=== PATIENT | male | born 1980 | race Caucasian/White ===

== ENCOUNTER 2019-06-27 16:47 | Observation (INO) ==
[2019-06-27 17:34] LABS: Basophils # 0.1 K/mcL (0.0-0.2); Basophils % 0.7 %; Hematocrit 49.8 % (37.5-50.1); Hemoglobin 17.2 g/dL (12.9-16.9); Immature Granulocytes % 0.3 % (0-4); Lymphocytes # 1.6 K/mcL (0.6-4.6); Mean Corpuscular HGB Conc 34.5 g/dL (31.6-35.5); Mean Corpuscular Hemoglobin 30.6 pg (28.0-33.3); Mean Corpuscular Volume 88.6 fL (83.0-100.0); Mean Platelet Volume 10.4 fL (9.4-12.4); Monocytes # 0.8 K/mcL (0.0-1.3); Monocytes % 5.2 %; Neutrophils # 12.2 K/mcL (1.6-8.9); Platelet Count 207 K/mcL (140-400); Red Blood Count 5.62 M/mcL (4.19-5.50); Red Cell Distribution Width 11.9 % (11.5-14.5); Segmented Neutrophils % 82.8 %; White Blood Count 14.8 K/mcL (4.3-11.1)
[2019-06-27] MEDS ORDERED: methylPREDNISolone 125 MG/2 ML VIAL IVP ONE (17:34)
[2019-06-27 17:52] LABS: BUN/Creatinine Ratio 15 (6-26); Blood Urea Nitrogen 24 mg/dL (6-20); Calcium 10.1 mg/dL (8.6-10.3); Carbon Dioxide 27 mEq/L (23-29); Chloride 101 mEq/L (98-107); Glucose 95 mg/dL (70-105); Osmolality,Calculated 284 (280-300); Potassium 4.5 mEq/L (3.5-5.1); Sodium 135 mEq/L (136-145); eGFR For African Americans > 60 (> 60); eGFR For Non-African Americans 50 (> 60)
[2019-06-27] MEDS ORDERED: 0.9 % Sodium Chloride 1,000 ML IVC ONE (18:02)
[2019-06-27] MEDS ORDERED: Dexamethasone 10 MG/ML VIAL PO STA (19:05)
[2019-06-27] MEDS ORDERED: Naloxone 0.4 MG/ML INJ IVP PRN (22:05)
[2019-06-27] MEDS ORDERED: Albuterol 2.5 MG/3 ML NEBULIZER IH PRN (22:06)
[2019-06-28 04:55] LABS: Hematocrit 47.7 % (37.5-50.1); Hemoglobin 16.1 g/dL (12.9-16.9); Mean Corpuscular HGB Conc 33.8 g/dL (31.6-35.5); Mean Platelet Volume 10.4 fL (9.4-12.4); Platelet Count 209 K/mcL (140-400); Red Blood Count 5.36 M/mcL (4.19-5.50)
[2019-06-28 04:57] LABS: White Blood Count 7.2 K/mcL (4.3-11.1)
[2019-06-28 05:13] LABS: BUN/Creatinine Ratio 16 (6-26); Blood Urea Nitrogen 22 mg/dL (6-20); Calcium 9.8 mg/dL (8.6-10.3); Carbon Dioxide 26 mEq/L (23-29); Chloride 102 mEq/L (98-107); Glucose 200 mg/dL (70-105); Osmolality,Calculated 291 (280-300); Potassium 4.4 mEq/L (3.5-5.1); Sodium 136 mEq/L (136-145); eGFR For African Americans > 60 (> 60); eGFR For Non-African Americans 58 (> 60)
[2019-06-28 07:00] VITALS: BP 123/73
[2019-06-28] MEDS ORDERED: predniSONE 20 MG TABLET PO SCH (09:00)
[2019-06-28] MEDS ORDERED: FLU Vac QV 19-20 (6Month+)/PF 0.5 ML SYRINGE IM ONE (09:46)
== END 2019-06-28 10:41 | disposition home or self-care (01) ==
LOC: 3BNU 16:47 → EMEROOARM 16:47 → 3BNU 20:31
PROVIDERS: ADMIT Internal Medicine; ATTEND Internal Medicine

== ENCOUNTER 2019-07-02 20:41 | Observation (INO) ==
[2019-07-02] MEDS ORDERED: Albuterol 2.5 MG/3 ML NEBULIZER IH ONE (21:14)
[2019-07-02 21:27] LABS: Basophils # 0.1 K/mcL (0.0-0.2); Hematocrit 46.8 % (37.5-50.1); Immature Granulocytes % 0.3 % (0-4); Lymphocytes # 2.3 K/mcL (0.6-4.6); Lymphocytes % 19.9 %; Mean Corpuscular HGB Conc 34.2 g/dL (31.6-35.5); Mean Corpuscular Hemoglobin 30.2 pg (28.0-33.3); Mean Corpuscular Volume 88.3 fL (83.0-100.0); Mean Platelet Volume 10.3 fL (9.4-12.4); Monocytes # 0.9 K/mcL (0.0-1.3); Monocytes % 7.7 %; Neutrophils # 8.2 K/mcL (1.6-8.9); Platelet Count 239 K/mcL (140-400); Red Cell Distribution Width 11.8 % (11.5-14.5); Segmented Neutrophils % 71.1 %
[2019-07-02 21:29] LABS: White Blood Count 11.5 K/mcL (4.3-11.1)
[2019-07-02 21:47] LABS: BUN/Creatinine Ratio 18 (6-26); Blood Urea Nitrogen 24 mg/dL (6-20); C-Reactive Protein < 5 mg/L (Less than 10); Calcium 9.7 mg/dL (8.6-10.3); Carbon Dioxide 26 mEq/L (23-29); Chloride 105 mEq/L (98-107); Glucose 94 mg/dL (70-105); Osmolality,Calculated 292 (280-300); Potassium 4.2 mEq/L (3.5-5.1); Sodium 139 mEq/L (136-145); eGFR For African Americans > 60 (> 60); eGFR For Non-African Americans > 60 (> 60)
[2019-07-02 22:04] LABS: Ferritin 50 ng/mL (20-250)
[2019-07-02] MEDS ORDERED: Piperacillin/Tazobactam 3.375 GM in 0.9 % Sodium Chloride Mini Bag 100 ML IVPB ONE (22:21)
[2019-07-02] MEDS ORDERED: Azithromycin 500 MG in 0.9 % Sodium Chloride 250 ML IVPB ONE (22:26)
[2019-07-02] MEDS: 0.9 % Sodium Chloride 1,000 ML IVC SCH (22:49)
[2019-07-02] MEDS ORDERED: Isovue-370 500 ML BOTTLE IVP ONE (23:11)
[2019-07-03] MEDS ORDERED: methylPREDNISolone 125 MG/2 ML VIAL IVP ONE (00:09)
[2019-07-03] MEDS: 0.9 % Sodium Chloride 1,000 ML IVC SCH ×2 (00:22→02:18)
[2019-07-03] MEDS ORDERED: Albuterol 2.5 MG/3 ML NEBULIZER IH ONE (00:22)
[2019-07-03] MEDS ORDERED: Naloxone 0.4 MG/ML INJ IVP PRN (04:18)
[2019-07-03] MEDS ORDERED: Albuterol 2.5 MG/3 ML NEBULIZER IH PRN (04:19)
[2019-07-03 07:00] LABS: Hematocrit 43.2 % (37.5-50.1); Hemoglobin 14.9 g/dL (12.9-16.9); Mean Corpuscular HGB Conc 34.5 g/dL (31.6-35.5); Mean Corpuscular Hemoglobin 30.5 pg (28.0-33.3); Mean Corpuscular Volume 88.5 fL (83.0-100.0); Mean Platelet Volume 10.2 fL (9.4-12.4); Platelet Count 200 K/mcL (140-400); Red Blood Count 4.88 M/mcL (4.19-5.50); White Blood Count 6.7 K/mcL (4.3-11.1)
[2019-07-03 07:25] LABS: BUN/Creatinine Ratio 14 (6-26); Blood Urea Nitrogen 17 mg/dL (6-20); Calcium 8.7 mg/dL (8.6-10.3); Carbon Dioxide 25 mEq/L (23-29); Chloride 107 mEq/L (98-107); Glucose 186 mg/dL (70-105); Osmolality,Calculated 292 (280-300); Potassium 4.6 mEq/L (3.5-5.1); Sodium 138 mEq/L (136-145); eGFR For African Americans > 60 (> 60); eGFR For Non-African Americans > 60 (> 60)
[2019-07-03] MEDS: predniSONE 20 MG TABLET PO SCH (08:44)
[2019-07-03] MEDS: Azithromycin 250 MG TABLET PO SCH (08:44)
[2019-07-03 09:27] LABS: VBG HCO3 27 mEq/L (21-27); VBG PCO2 52 mmHg (41-51); VBG PH 7.32 pH Units (7.32-7.42); VBG PO2 67 mmHg (25-50)
[2019-07-03 10:07] LABS: Adenovirus Not Detected (Not Detect); Bordetella Pertussis Not Detected (Not Detect); Chlamydophila pneumoniae Not Detected (Not Detect); Coronavirus 229E Not Detected (Not Detect); Coronavirus HKU1 Not Detected (Not Detect); Coronavirus NL63 Not Detected (Not Detect); Coronavirus OC43 Not Detected (Not Detect); Human Metapneumovirus Not Detected (Not Detect); Human Rhinovirus/Enterovirus Not Detected (Not Detect); Influenza A Subtype 2009 H1 Not Detected (Not Detect); Influenza B Not Detected (Not Detect); Mycoplasma pneumoniae Not Detected (Not Detect); Parainfluenza Virus 1 Not Detected (Not Detect); Parainfluenza Virus 2 Not Detected (Not Detect); Parainfluenza Virus 3 Not Detected (Not Detect); Parainfluenza Virus 4 Not Detected (Not Detect); Respiratory Syncytial Virus Not Detected (Not Detect)
[2019-07-03] MEDS ORDERED: Azithromycin 500 MG in D5% in Water 250 ML IVPB SCH (23:00)
[2019-07-04] MEDS: Azithromycin 250 MG TABLET PO SCH (07:45)
[2019-07-04] MEDS: predniSONE 20 MG TABLET PO SCH (07:45)
[2019-07-05] MEDS: Azithromycin 250 MG TABLET PO SCH (07:48)
[2019-07-05] MEDS: predniSONE 20 MG TABLET PO SCH (07:48)
[2019-07-05 08:09] VITALS: BP 133/75
== END 2019-07-05 12:20 | disposition home or self-care (01) ==
LOC: EMEROOARM 20:41 → 2NNU 20:41 → SUATTDRO 07-03 00:45 → 2NNU 07-03 01:15 → 3BNU 07-04 17:04
PROVIDERS: ADMIT Family Medicine; ATTEND Internal Medicine